=== PATIENT | female | born 1950 | race Caucasian/White ===

== ENCOUNTER 2020-06-06 11:45 | Outpatient (CLI) | payer MEDICARE ==
[~2020-06-06 11:45] MED LIST: CALTRATE PO; CETI10TA76 PO; CHLO25TA PO; FISH OIL PO; GINK120T3 PO; MULT-717 PO; OMEP-110 PO; SIMV40TA20 PO; TRAZ50TA66 PO; UBID200C7 PO; VITAMIN D PO
== END 2020-06-06 23:59 | disposition home or self-care (01) ==
LOC: RAD 11:45
PROVIDERS: ATTEND Family Medicine
DX: R60.0 Localized edema (principal)